=== PATIENT | male | born 1955 | race Caucasian/White ===

== ENCOUNTER 2022-03-14 14:53 | Emergency (ER) | payer MEDICARE, SELFPAY ==
[2022-03-14 14:55] VITALS: BP 129/75; PULSE 60; RESP 16; TEMP 36.8; O2SAT 97; BMI 35.9
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
[2022-03-14 15:55] VITALS: BP 129/75; PULSE 60; RESP 16; TEMP 36.8; O2SAT 97; BMI 35.8
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
[2022-03-14 16:11] VITALS: BP 129/75; PULSE 60; RESP 16; TEMP 36.8; O2SAT 97
== END 2022-03-14 16:40 | disposition home or self-care (01) ==
PROVIDERS: Emergency Provider Nurse Practitioner Family; PCP Family Medicine
DX: S92.415A Nondisplaced fracture of proximal phalanx of left great toe, initial encounter for closed fracture (principal); V86.99XA Unspecified occupant of other special all-terrain or other off-road motor vehicle injured in nontraffic accident, initial encounter
CPT/HCPCS: 73630; 99213; G0463

== ENCOUNTER 2022-04-02 11:53 | Emergency (ER) | payer MEDICARE, SELFPAY ==
[2022-04-02] VITALS (16 sets, daily range): BP systolic 86–117; BP diastolic 48–70; PULSE 55–68; RESP 18–19; TEMP 36.9; O2SAT 96–100; BMI 35.3
--- NOTE | 2022-04-02 11:45 | PC.NURSE ---
Family stating that pt feels lightheaded and like he is going in and out. Checked on pt, pt asking if his pupils were dilated, assess and pupils are at 1.5. MD at bedside, pt going for scans
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
--- NOTE | 2022-04-02 12:03 | PC.NURSE ---
pt to Radiology by stretcher with public health technologist
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
--- NOTE | 2022-04-02 12:49 | PC.NURSE ---
family at bs, covers given to prop right arm up for comfort
--- NOTE | 2022-04-02 13:10 | PC.NURSE ---
checked on pt, repositioned
--- NOTE | 2022-04-02 13:17 | PC.NURSE ---
ED MD at speaking with patient; family at BS
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
--- NOTE | 2022-04-02 14:41 | ECG_ITS ---
APPROVED REPORT Exam: Resting ECG HR:56 bpm ECG Measurements Heart Rate 56 AXES CO 171 P 55 QRSd 93 QRS -16 QT 430 T 0 QTc 421 Conclusion SINUS BRADYCARDIA POSSIBLE RIGHT VENTRICULAR CONDUCTION DELAY [RSR (QR) IN V1/V2] BORDERLINE ECG UNCONFIRMED REPORT Electronically signed by : Jaiden Ibrahim MD 04/03/2022 21:23:51
[2022-04-02 14:47] LABS: Basophils # 0.1 K/mm3 (0-0.2); Basophils % 0.9 % (0.1-2.0); Eosinophils # 0.1 K/mm3 (0.0-0.4); Eosinophils % 0.5 % (0.1-12.0); Hematocrit 43.1 % (42.0-52.0); Hemoglobin 14.3 g/dL (14.1-18.0); Lymphocytes # 0.4 K/mm3 (0.7-4.5); Lymphocytes % 2.8 % (10-50); Mean Corpuscular HGB Conc 33.1 g/dL (31.8-35.4); Mean Corpuscular Hemoglobin 31.6 pg (27.0-31.2); Mean Corpuscular Volume 95.4 fl (80-94); Mean Platelet Volume 8.1 fl (7.4-10.4); Monocytes # 0.8 K/mm3 (0.1-1.0); Monocytes % 5.9 % (1.7-9.3); Neutrophils % 89.9 % (37.0-80.0); Platelet Count 302 K/mm3 (142-424); Red Blood Count 4.52 M/mm3 (4.60-6.20); Red Cell Distribution Width 14.1 % (11.5-17.5); White Blood Count 13.4 K/mm3 (4.8-10.8)
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
[2022-04-02 15:27] LABS: Alanine Aminotransferase 39 U/L (12-78); Albumin Level 3.5 g/dl (3.5-5.0); Albumin/Globulin Ratio 1.3 (1.1-1.8); Alkaline Phosphatase 63 U/L (38-126); Anion Gap 10.3 mEq/L (5-15); Aspartate Amino Transferase 60 U/L (17-59); Bilirubin,Total 0.9 mg/dl (0.2-1.3); Blood Urea Nitrogen 15 mg/dl (9-20); Calcium 9.1 mg/dl (8.4-10.2); Carbon Dioxide 27 mmol/L (22.0-30.0); Chloride 102 mmol/L (98-107); Creatinine Clearance Estimated 112 mL/min (50-200); Estimated Glomerular Filt Rate 84 ml/min (>60); GFR (African American) 101 ML/MIN (>60); Globulin 2.8 g/dL (1.3-3.2); Glucose 172 mg/dl (74-100); MANUAL DIFFERENTIAL MANUAL DIFFERENTIAL (MANUAL DIFF); Potassium 3.3 mmoL/L (3.5-5.1); Sodium 136 mmol/L (136-145); Total Protein,Serum 6.3 g/dl (6.3-8.2)
--- NOTE | 2022-04-02 15:27 | PC.NURSE ---
Second line started 18 G, pt tolerated well
--- NOTE | 2022-04-02 15:49 | PC.NURSE ---
pt in CT at this time
[2022-04-02 18:57] LABS: Burr Cells 1+; Lymphocytes % 6 % (10-50); Monocytes % 2 % (2-9); Neutrophils % 92 % (42-76); Platelet Estimate Normal; Total Cells Counted 100
== END 2022-04-02 18:16 | disposition home or self-care (01) ==
PROVIDERS: Emergency Provider Emergency Medicine; PCP Family Medicine
DX: S51.012A Laceration without foreign body of left elbow, initial encounter (principal); S01.81XA Laceration without foreign body of other part of head, initial encounter; S61.411A Laceration without foreign body of right hand, initial encounter; S81.011A Laceration without foreign body, right knee, initial encounter; V40.1XXA Car passenger injured in collision with pedestrian or animal in nontraffic accident, initial encounter; Y92.488 Other paved roadways as the place of occurrence of the external cause; Z23 Encounter for immunization
CPT/HCPCS: 12002; 70450; 71045; 72125; 72170; 73562; 74177; 80053; 85007; 85025; 90715; 93005; 96360; 99285; Q9967

== ENCOUNTER 2022-06-10 14:00 | Outpatient (RCR) | payer MEDICARE, SELFPAY | END 2022-06-10 14:05 | disposition home or self-care (01) | LOC: PT 14:00 | PROVIDERS: PCP Family Medicine; Visit Provider Family Medicine | DX: S51.012D Laceration without foreign body of left elbow, subsequent encounter (principal); S01.81XD Laceration without foreign body of other part of head, subsequent encounter; T07.XXXA Unspecified multiple injuries, initial encounter; V87.7XXA Person injured in collision between other specified motor vehicles (traffic), initial encounter | CPT/HCPCS: 29580; 97140; 97163; 97164; 97597; 97598 ==